=== PATIENT | female | born 1995 | race Caucasian/White ===

== ENCOUNTER 2020-03-02 15:13 | Inpatient (IN) | payer BC ==
[2020-03-02] MEDS ORDERED: MISOPROSTOL 0.2 MG TABLET ONE (15:21)
[2020-03-02] MEDS ORDERED: OXYTOCIN 10 UNIT/ML VIAL ONE (15:21)
[2020-03-02] MEDS ORDERED: OXYTOCIN/0.9 % SODIUM CHLORIDE 30 UNIT/500 ML RTUINJ ONE (15:22)
[2020-03-02] MEDS ORDERED: LIDOCAINE 1% INJ-PF (10 MG/ML) 30 ML SDV ONE ×2 (15:22→19:42)
[2020-03-02] MEDS ORDERED: RINGERS SOLUTION,LACTATED 1,000 ML IV PRN (15:24)
[2020-03-02] MEDS ORDERED: PROMETHAZINE HCL INJ 25 MG/1 ML VIAL ONE (16:14)
[2020-03-02] MEDS ORDERED: NALBUPHINE HCL INJ 10 MG/1 ML AMPULE ONE (16:14)
[2020-03-02] MEDS ORDERED: NALBUPHINE HCL INJ 10 MG/1 ML AMPULE IV ONE (16:21)
[2020-03-02] MEDS ORDERED: PROMETHAZINE HCL INJ 25 MG/1 ML VIAL IV ONE (16:21)
[2020-03-02 16:36] LABS: ABSOLUTE LYMPHOCYTES (AUTO) 1.1 10^3/uL (0.5-4.7); ABSOLUTE MONOCYTES (AUTO) 0.8 10^3/uL (0.1-1.4); ABSOLUTE NEUT (AUTO) 10.5 10^3/uL (1.7-8.2); BASOPHILS % (AUTO) 0.2 % (0-2); HEMATOCRIT 32.6 % (36.0-47.0); HEMOGLOBIN 11.2 g/dL (12.0-15.5); LYMPHOCYTES % (AUTO) 8.5 % (13-45); MEAN CORPUSCULAR HGB CONC 34.3 g/dL (32.0-36.0); MEAN CORPUSCULAR VOLUME 88 fl (80-97); MONOCYTES % (AUTO) 6.2 % (3-13); PLATELET COUNT 205 10^3/uL (150-450); RED BLOOD COUNT 3.72 10^6/uL (3.72-5.28); RED CELL DISTRIBUTION WIDTH 15.4 % (11.5-14.0); SEGMENTED NEUTROPHILS % (AUTO) 85.1 % (42-78); TOTAL CELLS COUNTED % (AUTO) 100 %; WHITE BLOOD COUNT 12.4 10^3/uL (4.0-10.5)
[2020-03-02 16:47] LABS: APPEARANCE,URINE CLEAR; BILIRUBIN,URINE NEGATIVE (NEGATIVE); COLOR,URINE STRAW; GLUCOSE, URINE NEGATIVE (NEGATIVE); KETONES,URINE NEGATIVE (NEGATIVE); LEUKOCYTE ESTERASE,URINE SMALL (NEGATIVE); NITRITE,URINE NEGATIVE (NEGATIVE); PROTEIN,URINE NEGATIVE (NEGATIVE); URINE SPECIFIC GRAVITY 1.005; UROBILINOGEN,URINE NEGATIVE mg/dL (<2.0)
[2020-03-02] MEDS ORDERED: OXYTOCIN/0.9 % SODIUM CHLORIDE 30 UNIT/500 ML RTUINJ IV PRN ×2 (16:51→20:07)
--- NOTE | 2020-03-02 16:51 | Admission Physical ---
Datetime Report Generated by CPN: 03/02/2020 16:51 CURRENT ADMISSION Chief Complaint: Uterine Contractions Chief Complaint Other: not progressing at [facility] Indication for Induction: Not Applicable Indication for Induction- Other: may need labor augmentation Admit Impression : Term, Intrauterine ; Active Labor Admit Plan: Admit to Unit; Initiate Labor Augmentation Protocol ALLERGIES Medication Allergies: No Medication Allergies: gluten (03/02/2020) Latex: No Latex Allergies OBSTETRICAL HISTORY EDC: 02/27/2020 00:00 : 3 Para: 0 Term: 0 : 0 SAB: 2 IAB: 0 Ectopic: 0 Livin Cesareans: 0 VBACs: 0 Multiple Births: 0 PHYSICAL EXAM General: Normal HEENT: Normal Neurologic: Normal Thyroid: Deferred Heart: Normal Lungs: Normal Breast: Deferred Back: Normal Abdomen: Normal Genitourinary Exam: Normal Extremities: Normal DTRs: Deferred Pelvic Type: Adequate Vital Signs: Reviewed; Within Normal Limits VAGINAL EXAM Dilatation: 7 Effacement: 100 Station: 0 Contraction Comments: Q 3-4 mins MEMBRANES Pooling: Positive Membranes: Ruptured Amniotic Fluid Color: Clear FETUS A Monitoring: External US FHR- Baseline: 135 Variability: Moderate 6-25bpm Accelerations: 15X15 Decelerations: None FHR Category: Category I Estimated Weight (gm): 3650 Presentation: Vertex Admit Comment: at 40w4d seen a [facility] center in [place]. presented for care d/t contractions. AROM done by CHER Thomas at 1130 for clear fluid. CHER Thomas reports cx 6-7cm at 0300 and pt not pregressing with a disfunctional labor pattern. hx PCOS and failed early gtt with 190 at 20 weeks. Pt states she followed her sugars throughout her and they have been normal. INFORMED CONSENT Assignment: Evan Allen MD Signature: with User ID: Hayden : with User ID: Hayden
[2020-03-02 17:03] LABS: URINE AMPHETAMINES SCREEN NEGATIVE; URINE BARBITURATES SCREEN NEGATIVE; URINE BENZODIAZEPINES SCREEN NEGATIVE; URINE COCAINE SCREEN NEGATIVE; URINE MARIJUANA (THC) SCREEN NEGATIVE; URINE METHADONE SCREEN NEGATIVE; URINE PHENCYCLIDINE SCREEN NEGATIVE
[2020-03-02] MEDS ORDERED: DIBUCAINE 1% OINTMENT 28 GM TP PRN (20:07)
[2020-03-02] MEDS ORDERED: MAGNESIUM HYDROXIDE SUSP 30 ML UDCUP PO PRN (20:07)
[2020-03-02] MEDS ORDERED: PSEUDOEPHEDRINE HCL 30 MG TABLET PO PRN (20:07)
[2020-03-02] MEDS ORDERED: MEASLES,MUMPS&RUBELLA VACC/PF 0.5 ML VIAL SUBCUT PRN (20:07)
[2020-03-02] MEDS ORDERED: NA PHOS,M-B/NA PHOS,DI-BA (ADULT) 133 ML ENEMA PR PRN (20:07)
[2020-03-02] MEDS ORDERED: PROMETHAZINE HCL 25 MG TABLET PO PRN (20:07)
[2020-03-02] MEDS ORDERED: BENZOCAINE/MENTHOL AEROSOL SPRAY 56 ML TOP PRN (20:07)
[2020-03-02] MEDS ORDERED: PROMETHAZINE HCL 25 MG SUPP.RECT PR PRN (20:07)
[2020-03-02] MEDS ORDERED: GLYCERIN/WITCH HAZEL LEAF 1 EACH MED..WIPE TP PRN (20:07)
[2020-03-02] MEDS ORDERED: ZOLPIDEM TARTRATE 5 MG TABLET PO PRN (20:07)
[2020-03-02] MEDS ORDERED: ACETAMINOPHEN WITH CODEINE #3 TABLET PO PRN ×2 (20:07)
[2020-03-02] MEDS ORDERED: DIPHENHYDRAMINE HCL 25 MG CAPSULE PO PRN (20:07)
[2020-03-02] MEDS ORDERED: DIPH/PERTUSS(ACELL)/TETANUS VAC/PF 0.5 ML SYR (>=10YO) IM PRN (20:07)
[2020-03-02] MEDS ORDERED: ACETAMINOPHEN 650 MG SUPP.RECT PR PRN (20:07)
[2020-03-02] MEDS ORDERED: PROMETHAZINE HCL INJ 25 MG/1 ML VIAL IV PRN (20:07)
[2020-03-02] MEDS ORDERED: IBUPROFEN 800 MG TABLET ONE (20:44)
--- NOTE | 2020-03-02 21:42 | Delivery Summary ---
Del Sum A-C Datetime Report Generated by CPN: 03/02/2020 21:41 DELIVERY PERSONNEL DELIVERY PERSONNEL: [id number] Delivery Doctor:: Evan Allen MD (Annotations: Data stored by CPN on behalf of user) Labor and Delivery Nurse:: Cameron Zacarias RN (Annotations: Data stored by CPN on behalf of user) Labor and Delivery Nurse:: Priyanka Warren RN (Annotations: Data stored by CPN on behalf of user) MATERNAL INFORMATION Delivery Anesthesia: None Medications After Delivery: Pitocin Bolus-Please Comment; Pitocin 30 Units in 500ml NS/D5W Delivery QBL: 316 Maternal Complications: None LABOR SUMMARY EDC: 02/27/2020 00:00 No. Babies in Womb: 1 Attempted: No Labor Anesthesia: None LABOR INFORMATION Reason for Induction: Not Applicable Onset of Labor: 03/02/2020 15:46 Complete Dilatation: 03/02/2020 17:53 Oxytocin: N/A Group B Beta Strep: Negative Antibiotics # of Doses: 0 Name of Antibiotic Given: n/a MEMBRANES Membranes Rupture Method: Artificial Rupture of Membranes: 03/02/2020 16:00 Length of Rupture (hr): 3.57 Amniotic Fluid Color: Clear Amniotic Fluid Amount: Small Amniotic Fluid Odor: Normal STAGES OF LABOR Stage 1 hr: 2 Stage 1 min: 7 Stage 2 hr: 1 Stage 2 min: 41 Stage 3 hr: 0 Stage 3 min: 4 Total Time in Labor hr: 3 Total Time in Labor min: 52 VAGINAL DELIVERY Episiotomy: None Laceration #1: Vaginal; Sulcus Laceration Extension #1: Third Degree, IIIa (Less than 50 percent ext anal sphincter thickness torn) Laceration #2: Vaginal Laceration Extension #2: N/A Laceration #3: Vaginal Laceration Extension #3: N/A Laceration Repair: Yes Laceration Repair Note: bilateral vaginal tears repaired with 2-0 vicryl left deep sulcus tear, external spincter repaired 3 layers and remaining repaired in usual continuous fashions Sponge Count Correct: Yes; Vaginal Sweep Performed Sharps Count Correct: Yes CSECTION DELIVERY Primary Indication: N/A Secondary Indication: N/A CSection Incidence: N/A Labor: N/A Elective: N/A CSection Incision: N/A BABY A INFORMATION Delivery Date/Time: 03/02/2020 19:34 Method of Delivery: Vaginal Nurse Controlled Delivery: No Born in Route : No : N/A PRESENTATION/POSITION BABY A Presentation: Cephalic Cephalic Presentation: Vertex Vertex Position: Left Occipital Anterior Breech Presentation: N/A PLACENTA INFORMATION BABY A Placenta Delivery Time : 03/02/2020 19:38 Placenta Method of Delivery: Spontaneous Placenta Status: Delivered SCORES BABY A Heart Rate 1 min: >100 bpm Resp Effort 1 min: Good Cry Reflex Irritability 1 min: Cough or Sneeze or Pulls Away Muscle Tone 1 min: Active Motion Color 1 min: Blue/Pale Resuscitation Effort 1 min: Tactile Stimulation SCORE 1 MIN: 8 Heart Rate 5 min: >100 bpm Resp Effort 5 min: Good Cry Reflex Irritability 5 min: Cough or Sneeze or Pulls Away Muscle Tone 5 min: Active Motion Color 5 min: Body [place], Extremities Blue Resuscitation Effort 5 min: Tactile Stimulation SCORE 5 MIN: 9 INFANT INFORMATION BABY A Gestational Age at Delivery: 40.4 Gestational Status: Full Term- 39- 40.6 Weeks Outcome : Liveborn Infant Condition : Stable Infant Sex: Male WEIGHT/LENGTH BABY A Birthweight (gm): 3550 Weight (lb): 7 Weight (oz): 13 Infant Length (in): 19.50 Length (cm): 49.53 CORD INFORMATION BABY A No. Cord Vessels: 3 Nuchal Cord : N/A Cord Blood Taken: Yes-For Storage (Mom's Blood type +) Infant Suction: None ASSESSMENT BABY A Infant Complications: None Physical Findings at Delivery: Within Normal Limits Skin to Skin: Yes Skin to Skin Time (min): 60 Transferred To: Remains with Mother BABY B INFORMATION : N/A SIGNATURES Signature: with User ID: [email or web address] : I was personally available for consultation and serving as supervising physician for the MLP.
--- NOTE | 2020-03-02 21:42 | Birth Certificate Data ---
Cert Data Datetime Report Generated by Jennifer: 03/02/2020 21:41 CERTIFICATE DATA Delivery Provider: Evan Allen MD (Annotations: Data stored by MARY on behalf of user) (03/02/2020 16:29:Elma Bhandari RN) 47a. Care: Yes (03/02/2020 16:29:JANE Jones) 47b. Date of First Visit: 09/03/2019 00:00 (03/02/2020 16:29:JANE Jones) 47c. Date of Last Visit: 02/26/2020 00:00 (03/02/2020 16:29:JANE Jones) 48a. Number of Prev Live Births: 0 (03/02/2020 16:29:JANE Jones) 48b. Now Livin (03/02/2020 16:29:JANE Jones) 48c. Live Births Now : 0 (03/02/2020 16:29:QS system process) 48e. Losses: 2 (03/02/2020 16:29:[facility]) 48f. Date of Last Preg Loss: 11/18/2018 00:00 (03/02/2020 16:29:[facility]) RISK FACTORS IN THIS 49a. Diabetes: No (03/02/2020 16:29:Vivian Graham RN) 49b. Hypertension: No (03/02/2020 16:29:Vivian Graham RN) 49c. Previous Births: 0 (03/02/2020 16:29:[facility]) 49d. Stillborns: No (03/02/2020 16:29:Vivian Graham RN) 49d. IUGR: No (03/02/2020 16:29:Vivian Graham RN) 49e. Infertility Treatment: No (03/02/2020 16:29:Vivian Graham RN) 49f. Previous Cesareans: 0 (03/02/2020 16:29:[facility]) Mother's Height 50b. Height Inches: 65 (03/02/2020 15:32:QS system process) Mother's Weight 51a. Pre- Weight (lbs): 187 (03/02/2020 16:29:JANE Jones) 51b. Weight at Delivery (lbs): 220 (03/02/2020 15:32:QS system process) 52. Dt Last Normal Menses Began: 05/23/2019 00:00 (03/02/2020 16:29:JANE Jones) Infections Present/Treated 53a. Gonorrhea: No (03/02/2020 16:29:Vivian Graham RN) Results this Hospital Visit : Negative (03/02/2020 16:29:Vivian Graham RN) 53b. Syphilis: No (03/02/2020 16:29:Vivian Graham RN) 53c. Chlamydia: No (03/02/2020 16:29:Vivian Graham RN) Results this Hospital Visit: Negative (03/02/2020 16:29:Vivian Graham RN) 53d. Hepatitis B: No (03/02/2020 16:29:Vivian Graham RN) Results this Hospital Visit: Negative (03/02/2020 16:29:Vivian Graham RN) 53e. Hepatitis C: Negative (03/02/2020 16:29:Vivian Graham RN) 53h. Mother Tested for HBsAG: Yes (03/02/2020 16:29:JANE Jones) 53i. Date Tested: 09/11/2019 00:00 (03/02/2020 16:29:JANE Jones) 53j. Test Result: Negative (03/02/2020 16:29:Vivian Graham RN) Obstetric Procedures 54a, b, c. Obstetric Procedures: Ultrasound (03/02/2020 16:29:Vivian Graham RN) Cigarette Smoking Cigarette Smoking: Never Smoker. [id number] (03/02/2020 16:29:Vivian Graham RN) 55a. 3 Months Before Preg - Ci (03/02/2020 16:29:Vivian Graham RN) 55a. Packs: 0 (03/02/2020 16:29:Vivian Graham RN) 55b. 1st Trimester of Preg- Ci (03/02/2020 16:29:Vivian Graham RN) 55b. Packs: 0 (03/02/2020 16:29:Vivian Graham RN) 55c. 2nd Trimester of Preg- Ci (03/02/2020 16:29:Vivian Graham RN) 55c. Packs: 0 (03/02/2020 16:29:Vivian Graham RN) 55d. 3rd Trimester of Preg- Ci (03/02/2020 16:29:Vivian Graham RN) 55d. Packs: 0 (03/02/2020 16:29:Vivian Graham RN) Onset of Labor 56a. PROM >12 Hrs: 3.57 (03/02/2020 16:29:QS system process) 56b. Precipitous Labor <3 Hrs: 3 (03/02/2020 16:29:QS system process) 56c. Prolonged Labor > 20 Hrs: 3 (03/02/2020 16:29:QS system process) 57a. Induction of Labor: N/A (03/02/2020 16:29:Cameron Zacarias RN) 57c. Non-Vertex Presentation A: Vertex (03/02/2020 16:29:Cameron Zacarias RN) 57f. Mat [place] or Temp >100.4: 98.6 (03/02/2020 16:29:Cameron Zacarias RN) 57g. Moderate/Heavy Meconium: Clear (03/02/2020 16:29:Cameron Zacarias RN) 57h. Intolerance of Labor: N/A (03/02/2020 16:29:Cameron Zacarias RN) : N/A (03/02/2020 16:29:Cameron Zacarias RN) 57i. Epidural/Spinal Anesthesia: None (03/02/2020 16:29:Cameron Zacarias RN) 58c. Presentation at 58c. Presentation at - A : Vertex (03/02/2020 16:29:Cameron Zacarias RN) 58c. Presentation at - A : N/A (03/02/2020 16:29:Cameron Zacarias RN) 58c. Presentation at - A : Cephalic (03/02/2020 15:46:Priyanka Warren RN) Final Route and Method of Del 58d. Baby A Route/Delivery: Vaginal (03/02/2020 16:29:Evan Allen MD ([facility])) 58e. Trial of Labor Attempted: No (03/02/2020 16:29:Cameron Zacarias RN) 58e. Trial of Labor Attempted A: N/A (03/02/2020 16:29:Cameron Zacarias RN) 58e. Trial of Labor Attempted B: N/A (03/02/2020 16:29:Cameron Zacarias RN) Maternal Morbidity 59b. 3rd or 4th Degree Lacs: Vaginal; Sulcus (03/02/2020 16:29:Evan Allen MD ([facility])) Birthweight Baby A: 3550 (03/02/2020 16:29:Cameron Zacarias RN) 60a. Pounds : 7 (03/02/2020 16:29:QS system process) 60b. Ounces: 13 (03/02/2020 16:29:QS system process) 61. GA at Delivery Baby A: 40.4 (03/02/2020 16:29:Cameron Zacarias RN) : Full Term- 39- 40.6 Weeks (03/02/2020 16:29:QS system process) 62a. 5 Minute Baby A: 9 (03/02/2020 16:29:QS system process)
[2020-03-02] MEDS: FAMOTIDINE 20 MG TABLET PO SCH (23:44)
[2020-03-02] MEDS: IBUPROFEN 800 MG TABLET PO SCH (23:44)
--- NOTE | 2020-03-03 04:22 | Delivery Summary ---
Del Sum A-C Datetime Report Generated by CPN: 03/03/2020 04:22 DELIVERY PERSONNEL DELIVERY PERSONNEL: [id number] Delivery Doctor:: Evan Allen MD (Annotations: Data stored by CPN on behalf of user) Labor and Delivery Nurse:: Cameron Zacarias RN (Annotations: Data stored by CPN on behalf of user) Labor and Delivery Nurse:: Priyanka Warren RN (Annotations: Data stored by CPN on behalf of user) Mock Up Assembler/JOB PLACEMENT OFFICER: Lindsey Green, ST MATERNAL INFORMATION Delivery Anesthesia: None Medications After Delivery: Pitocin Bolus-Please Comment; Pitocin 30 Units in 500ml NS/D5W Delivery QBL: 316 Maternal Complications: None LABOR SUMMARY EDC: 02/27/2020 00:00 No. Babies in Womb: 1 Attempted: No Labor Anesthesia: None LABOR INFORMATION Reason for Induction: Not Applicable Onset of Labor: 03/02/2020 15:46 Complete Dilatation: 03/02/2020 17:53 Oxytocin: N/A Group B Beta Strep: Negative Antibiotics # of Doses: 0 Name of Antibiotic Given: n/a MEMBRANES Membranes Rupture Method: Artificial Rupture of Membranes: 03/02/2020 16:00 Length of Rupture (hr): 3.57 Amniotic Fluid Color: Clear Amniotic Fluid Amount: Small Amniotic Fluid Odor: Normal STAGES OF LABOR Stage 1 hr: 2 Stage 1 min: 7 Stage 2 hr: 1 Stage 2 min: 41 Stage 3 hr: 0 Stage 3 min: 4 Total Time in Labor hr: 3 Total Time in Labor min: 52 VAGINAL DELIVERY Episiotomy: None Laceration #1: Vaginal; Sulcus Laceration Extension #1: Third Degree, IIIa (Less than 50 percent ext anal sphincter thickness torn) Laceration #2: Vaginal Laceration Extension #2: N/A Laceration #3: Vaginal Laceration Extension #3: N/A Laceration Repair: Yes Laceration Repair Note: bilateral vaginal tears repaired with 2-0 vicryl left deep sulcus tear, external spincter repaired 3 layers and remaining repaired in usual continuous fashions Sponge Count Correct: Yes; Vaginal Sweep Performed Sharps Count Correct: Yes CSECTION DELIVERY Primary Indication: N/A Secondary Indication: N/A CSection Incidence: N/A Labor: N/A Elective: N/A CSection Incision: N/A BABY A INFORMATION Delivery Date/Time: 03/02/2020 19:34 Method of Delivery: Vaginal Nurse Controlled Delivery: Yes Born in Route : No : N/A Forceps: N/A Vacuum Extraction: N/A Shoulder Dystocia : No PRESENTATION/POSITION BABY A Presentation: Cephalic Cephalic Presentation: Vertex Vertex Position: Left Occipital Anterior Breech Presentation: N/A PLACENTA INFORMATION BABY A Placenta Delivery Time : 03/02/2020 19:38 Placenta Method of Delivery: Spontaneous Placenta Status: Delivered SCORES BABY A Heart Rate 1 min: >100 bpm Resp Effort 1 min: Good Cry Reflex Irritability 1 min: Cough or Sneeze or Pulls Away Muscle Tone 1 min: Active Motion Color 1 min: Blue/Pale Resuscitation Effort 1 min: Tactile Stimulation SCORE 1 MIN: 8 Heart Rate 5 min: >100 bpm Resp Effort 5 min: Good Cry Reflex Irritability 5 min: Cough or Sneeze or Pulls Away Muscle Tone 5 min: Active Motion Color 5 min: Body [place], Extremities Blue Resuscitation Effort 5 min: Tactile Stimulation SCORE 5 MIN: 9 INFORMATION BABY A Gestational Age at Delivery: 40.4 Gestational Status: Full Term- 39- 40.6 Weeks Infant Outcome : Liveborn Condition : Stable Sex: Male IDENTIFICATION BABY A Verification Date/Time: 03/02/2020 22:12 ID Band Number: [id number] Mother's Name Verified: Yes RN Verifying Infant: Anival Copeland, RN [facility] WEIGHT/LENGTH BABY A Birthweight (gm): 3550 Weight (lb): 7 Infant Weight (oz): 13 Infant Length (in): 19.50 Infant Length (cm): 49.53 CORD INFORMATION BABY A No. Cord Vessels: 3 Nuchal Cord : N/A Cord Blood Taken: Yes-For Storage (Mom's Blood type +) Suction: None ASSESSMENT BABY A Infant Complications: None Physical Findings at Delivery: Within Normal Limits Skin to Skin: Yes Skin to Skin Time (min): 60 Transferred To: Remains with Mother BABY B INFORMATION : N/A SIGNATURES Signature: with User ID: [email or web address] : I was personally available for consultation and serving as supervising physician for the MLP.
--- NOTE | 2020-03-03 04:22 | Birth Certificate Data ---
Cert Data Datetime Report Generated by Jennifer: 03/03/2020 04:22 CERTIFICATE DATA Delivery Provider: Evan Allen MD (Annotations: Data stored by MARY on behalf of user) (03/02/2020 16:29:Elma Bhandari RN) 47a. Care: Yes (03/02/2020 16:29:JANE Jones) 47b. Date of First Visit: 09/03/2019 00:00 (03/02/2020 16:29:JANE Jones) 47c. Date of Last Visit: 02/26/2020 00:00 (03/02/2020 16:29:JANE Jones) 48a. Number of Prev Live Births: 0 (03/02/2020 16:29:JANE Jones) 48b. Now Livin (03/02/2020 16:29:JANE Jones) 48c. Live Births Now : 0 (03/02/2020 16:29:QS system process) 48e. Losses: 2 (03/02/2020 16:29:[facility]) 48f. Date of Last Preg Loss: 11/18/2018 00:00 (03/02/2020 16:29:[facility]) RISK FACTORS IN THIS 49a. Diabetes: No (03/02/2020 16:29:Vivian Graham RN) 49b. Hypertension: No (03/02/2020 16:29:Vivian Graham RN) 49c. Previous Births: 0 (03/02/2020 16:29:[facility]) 49d. Stillborns: No (03/02/2020 16:29:Vivian Graham RN) 49d. IUGR: No (03/02/2020 16:29:Vivian Graham RN) 49e. Infertility Treatment: No (03/02/2020 16:29:Vivian Graham RN) 49f. Previous Cesareans: 0 (03/02/2020 16:29:[facility]) Mother's Height 50b. Height Inches: 65 (03/02/2020 15:32:QS system process) Mother's Weight 51a. Pre- Weight (lbs): 187 (03/02/2020 16:29:JANE Jones) 51b. Weight at Delivery (lbs): 220 (03/02/2020 15:32:QS system process) 52. Dt Last Normal Menses Began: 05/23/2019 00:00 (03/02/2020 16:29:JANE Jones) Infections Present/Treated 53a. Gonorrhea: No (03/02/2020 16:29:Vivian Graham RN) Results this Hospital Visit : Negative (03/02/2020 16:29:Vivian Graham RN) 53b. Syphilis: No (03/02/2020 16:29:Vivian Graham RN) 53c. Chlamydia: No (03/02/2020 16:29:Vivian Graham RN) Results this Hospital Visit: Negative (03/02/2020 16:29:Vivian Graham RN) 53d. Hepatitis B: No (03/02/2020 16:29:Vivian Graham RN) Results this Hospital Visit: Negative (03/02/2020 16:29:Vivian Graham RN) 53e. Hepatitis C: Negative (03/02/2020 16:29:Vivian Graham RN) 53h. Mother Tested for HBsAG: Yes (03/02/2020 16:29:JANE Jones) 53i. Date Tested: 09/11/2019 00:00 (03/02/2020 16:29:JANE Jones) 53j. Test Result: Negative (03/02/2020 16:29:Vivian Graham RN) Obstetric Procedures 54a, b, c. Obstetric Procedures: Ultrasound (03/02/2020 16:29:Vivian Graham RN) Cigarette Smoking Cigarette Smoking: Never Smoker. [id number] (03/02/2020 16:29:Vivian Graham RN) 55a. 3 Months Before Preg - Ci (03/02/2020 16:29:Vivian Graham RN) 55a. Packs: 0 (03/02/2020 16:29:Vivian Graham RN) 55b. 1st Trimester of Preg- Ci (03/02/2020 16:29:Vivian Graham RN) 55b. Packs: 0 (03/02/2020 16:29:Vivian Graham RN) 55c. 2nd Trimester of Preg- Ci (03/02/2020 16:29:Vivian Graham RN) 55c. Packs: 0 (03/02/2020 16:29:Vivian Graham RN) 55d. 3rd Trimester of Preg- Ci (03/02/2020 16:29:Vivian Graham RN) 55d. Packs: 0 (03/02/2020 16:29:Vivian Graham RN) Onset of Labor 56a. PROM >12 Hrs: 3.57 (03/02/2020 16:29:QS system process) 56b. Precipitous Labor <3 Hrs: 3 (03/02/2020 16:29:QS system process) 56c. Prolonged Labor > 20 Hrs: 3 (03/02/2020 16:29:QS system process) 57a. Induction of Labor: N/A (03/02/2020 16:29:Cameron Zacarias RN) 57c. Non-Vertex Presentation A: Vertex (03/02/2020 16::Cameron Zacarias RN) 57f. Mat [place] or Temp >100.4: 98.6 (03/02/2020 16::Cameron Zacarias RN) 57g. Moderate/Heavy Meconium: Clear (03/02/2020 16::Cameron Zacarias RN) 57h. Intolerance of Labor: N/A (03/02/2020 16::Cameron Zacarias RN) : N/A (03/02/2020::Cameron Zacarias RN) 57i. Epidural/Spinal Anesthesia: None (03/02/2020 16::Cameron Zacarias RN) Method of Delivery 58a. Forceps - Unsuccessful A: N/A (03/02/2020 16:29:Cameron Zacarias RN) 58b. Vacuum - Unsuccessful A: N/A (03/02/2020 16:29:Cameron Zacarias RN) 58c. Presentation at 58c. Presentation at - A : Vertex (03/02/2020 16:29:Cameron Zacarias RN) 58c. Presentation at - A : N/A (03/02/2020 16:29:Cameron Zacarias RN) 58c. Presentation at - A : Cephalic (03/02/2020 15:46:Priyanka Warren RN) Final Route and Method of Del 58d. Baby A Route/Delivery: Vaginal (03/02/2020 16:29:Evan Allen MD ([facility])) 58e. Trial of Labor Attempted: No (03/02/2020 16:29:Cameron Zacarias RN) 58e. Trial of Labor Attempted A: N/A (03/02/2020 16:29:Cameron Zacarias RN) 58e. Trial of Labor Attempted B: N/A (03/02/2020 16:29:Cameron Zacarias RN) Maternal Morbidity 59b. 3rd or 4th Degree Lacs: Vaginal; Sulcus (03/02/2020 16:29:Evan Allen MD ([facility])) Birthweight Baby A: 3550 (03/02/2020 16:29:Cameron Zacarias RN) 60a. Pounds : 7 (03/02/2020 16:29:QS system process) 60b. Ounces: 13 (03/02/2020 16:29:QS system process) 61. GA at Delivery Baby A: 40.4 (03/02/2020 16:29:Cameron Zacarias RN) : Full Term- 39- 40.6 Weeks (03/02/2020 16:29:QS system process) 62a. 5 Minute Baby A: 9 (03/02/2020 16:29:QS system process)
[2020-03-03] MEDS: IBUPROFEN 800 MG TABLET PO SCH ×3 (06:06→21:08)
[2020-03-03 07:34] LABS: HEMATOCRIT 24.9 % (36.0-47.0); MEAN CORPUSCULAR HEMOGLOBIN 30.9 pg (27.0-33.4); MEAN CORPUSCULAR VOLUME 88 fl (80-97); PLATELET COUNT 182 10^3/uL (150-450); RED BLOOD COUNT 2.83 10^6/uL (3.72-5.28); RED CELL DISTRIBUTION WIDTH 15.4 % (11.5-14.0); WHITE BLOOD COUNT 11.2 10^3/uL (4.0-10.5)
[2020-03-03 07:36] LABS: HEMOGLOBIN 8.7 g/dL (12.0-15.5)
[2020-03-03] MEDS: FERROUS SULFATE 325 MG TABLET PO SCH ×2 (09:49→17:45)
[2020-03-03] MEDS: PRENATAL VITAMIN W DHA CAPSULE PO SCH ×2 (09:49→09:50)
[2020-03-03] MEDS: DOCUSATE SODIUM 100 MG CAPSULE PO SCH ×2 (09:49→17:45)
[2020-03-03] MEDS: SENNOSIDES/DOCUSATE 8.6-50 MG 1 EACH TABLET PO SCH (09:49)
[2020-03-03] MEDS: FAMOTIDINE 20 MG TABLET PO SCH ×2 (09:50→21:08)
--- NOTE | 2020-03-03 11:10 | PDOC PROGRESS REPORT ---
Subjective-OB Progress Note for:: 03/03/20 - PP Day #1, doing well, UOB voiding, denies h/a or SOB, A+, Rubella Immune, 3 degree vaginal laceration Physical Exam (OB) Vital Signs: Temp Pulse Resp BP Pulse Ox 97.6 F 93 18 116/64 100 03/03/20 08:00 03/03/20 08:00 03/03/20 08:00 03/03/20 08:00 03/03/20 08:00 Intake & Output 03/02/20 03/03/20 03/04/20 06:59 06:59 06:59 Output Total 900 Balance -900 Weight 100 kg - General General Appearance: Appears well, Alert In distress: None - PIH/Pre-Eclampsia Clonus: Negative Headache: Absent Epigastric Pain: No Visual Changes: No - Maternal Morbidity 59. Maternal Morbidity (serious complications experinced by the mother associated with labor and delivery: Third or fourth degree perineal laceration - Lochia Lochia Amount: Small 10-25 ml Lochia Color: Rubra/Red - Abdomen Description: Soft, Round Hernia Present: No Fundal Description: Firm, Midline Fundal Height: u/u - u/2 - Respiratory Respiratory Status: No respiratory distress - Abdominal Distension: No distension Tenderness: Nontender - Genitourinary Genitourinary Note: voiding - Extremities Upper extremity: Normal inspection Lower extremities: Edema - Neurological Cognition: Normal Orientation: AAOx4 - Psychological Associated symptoms: Normal affect, Normal mood - Skin Skin Temperature: Warm Skin Moisture: Dry Objective-Diagnostic Laboratory: 03/03/20 07:14 03/02/20 03/02/20 03/02/20 15:27 15:47 15:47 WBC 12.4 H RBC 3.72 Hgb 11.2 L Hct 32.6 L MCV 88 MCH 30.0 MCHC 34.3 RDW 15.4 H Plt Count 205 Seg Neutrophils % 85.1 H Urine Color STRAW Urine Appearance CLEAR Urine pH 7.0 Ur Specific [place] 1.005 Urine Protein NEGATIVE Urine Glucose (UA) NEGATIVE Urine Ketones NEGATIVE Urine Blood SMALL H Urine Nitrite NEGATIVE Ur Leukocyte Esterase SMALL H Blood Type A POSITIVE Antibody Screen NEGATIVE 03/03/20 07:14 WBC 11.2 H RBC 2.83 L Hgb 8.7 L D Hct 24.9 L MCV 88 MCH 30.9 MCHC 35.0 RDW 15.4 H Plt Count 182 Seg Neutrophils % Urine Color Urine Appearance Urine pH Ur Specific [place] Urine Protein Urine Glucose (UA) Urine Ketones Urine Blood Urine Nitrite Ur Leukocyte Esterase Blood Type Antibody Screen Assessment and Plan(PN) - Assessment and Plan (1) (normal spontaneous vaginal delivery) Is this a current diagnosis for this admission?: Yes (2) Obstetric vaginal laceration with third degree perineal laceration Qualifiers: Third degree perineal laceration subtype: unspecified Qualified Code(s): O70.20 - Third degree perineal laceration during delivery, unspecified Is this a current diagnosis for this admission?: Yes (3) Acute blood loss anemia Is this a current diagnosis for this admission?: Yes Plan:: Will give IV iron today, pt agrees with plan. Routine PP orders, careful ambulation encouraged - Time Spent with Patient Time with patient: Less than 15 minutes Medications reviewed and adjusted accordingly: Yes - Disposition Anticipated Discharge Disposition: Home, Self Care Anticipated Discharge Timeframe: within 24 hours
[2020-03-04] MEDS: IBUPROFEN 800 MG TABLET PO SCH (05:28)
[2020-03-04 07:53] VITALS: BP 125/76
[2020-03-04] MEDS: FERROUS SULFATE 325 MG TABLET PO SCH (09:15)
[2020-03-04] MEDS: PRENATAL VITAMIN W DHA CAPSULE PO SCH ×2 (09:15→21:37)
[2020-03-04] MEDS: DOCUSATE SODIUM 100 MG CAPSULE PO SCH (09:15)
[2020-03-04] MEDS: FAMOTIDINE 20 MG TABLET PO SCH (09:16)
[2020-03-04] MEDS: SENNOSIDES/DOCUSATE 8.6-50 MG 1 EACH TABLET PO SCH (09:16)
--- NOTE | 2020-03-04 11:02 | PDOC PROGRESS REPORT ---
Subjective-OB Progress Note for:: 03/04/20 Subjective: doing well, no c/o, hsb at [facility], ready to go home, no BM, voiding, Physical Exam (OB) Vital Signs: Temp Pulse Resp BP Pulse Ox 97.7 F 105 H 17 125/76 100 03/04/20 07:51 03/04/20 07:51 03/04/20 07:51 03/04/20 07:51 03/04/20 07:51 Intake & Output 03/03/20 03/04/20 03/05/20 06:59 06:59 06:59 Intake Total 400 Output Total 900 Balance -900 400 Weight 100 kg - PIH/Pre-Eclampsia DTR's: 2 + Clonus: Negative Headache: Absent Epigastric Pain: No Visual Changes: No - Maternal Morbidity 59. Maternal Morbidity (serious complications experinced by the mother associated with labor and delivery: Third or fourth degree perineal laceration - Lochia Lochia Amount: Scant < 10 ml Lochia Color: Rubra/Red - Abdomen Description: Soft, Round Hernia Present: No Fundal Description: Firm, Midline Fundal Height: u/u - u/2 Objective-Diagnostic Laboratory: 03/03/20 07:14 Assessment and Plan(PN) - Assessment and Plan (1) (normal spontaneous vaginal delivery) Is this a current diagnosis for this admission?: Yes (2) Obstetric vaginal laceration with third degree perineal laceration Qualifiers: Third degree perineal laceration subtype: unspecified Qualified Code(s): O70.20 - Third degree perineal laceration during delivery, unspecified Is this a current diagnosis for this admission?: Yes (3) Acute blood loss anemia Is this a current diagnosis for this admission?: Yes - Time Spent with Patient Time with patient: Less than 15 minutes Medications reviewed and adjusted accordingly: Yes - Disposition Anticipated Discharge Disposition: Home, Self Care - discussed home care for 3rd degree, no enemas, nothing in rectum, continue colace, diet high in fiber to avoid constipation, rev signs to call office if needed Anticipated Discharge Timeframe: within 24 hours
--- NOTE | 2020-03-04 11:17 | PDOC DISCHARGE SUMMARY ---
Impression - Admit/DC Date/PCP Admission Date/Primary Care Provider: 03/02/20 15:13 MARIO NORRIS MD Discharge Date: 03/04/20 - Discharge Diagnosis (1) (normal spontaneous vaginal delivery) Is this a current diagnosis for this admission?: Yes (2) Obstetric vaginal laceration with third degree perineal laceration Is this a current diagnosis for this admission?: Yes (3) Acute blood loss anemia Is this a current diagnosis for this admission?: Yes - Additional Information Resuscitation Status: Full Code Discharge Diet: As Tolerated, Regular Discharge Activity: Activity As Tolerated, Pelvic Rest, Other Referrals: MARIO NORRIS MD [Primary Care Provider] - (RTC 4 weeks) Home Medications: Vit/Dha [ Multi + Dha Capsule] 1 cap PO DAILY 03/02/20 Sennosides/Docusate 8.6-50 mg [Senna Plus Tablet] 1 each PO DAILY tablet 03/04/20 HPI Gestational Age: 40.3 Reason(s) for Admission: Onset of Labor Procedures: Ultrasound Intrapartum Procedure(s): Spontaneous Vaginal Delivery Complication(s): Laceration-Perineal Laceration-Degree: 3rd - pt transferred care to [facility] on 01-13-20. last visit 02-26-2020 @ 39.6, transferred in labor from [facility] for augmentation and maternal exhaustion Hospital Course Hospital Course: routine 59. Maternal Morbidity (serious complications experinced by the mother ass ociated with labor and delivery: Third or fourth degree perineal laceration Results Laboratory Results: WBC 11.2 10^3/uL (4.0-10.5) H 03/03/20 07:14 RBC 2.83 10^6/uL (3.72-5.28) L 03/03/20 07:14 Hgb 8.7 g/dL (12.0-15.5) L D 03/03/20 07:14 Hct 24.9 % (36.0-47.0) L 03/03/20 07:14 MCV 88 fl (80-97) 03/03/20 07:14 MCH 30.9 pg (27.0-33.4) 03/03/20 07:14 MCHC 35.0 g/dL (32.0-36.0) 03/03/20 07:14 RDW 15.4 % (11.5-14.0) H 03/03/20 07:14 Plt Count 182 10^3/uL (150-450) 03/03/20 07:14 Lymph % (Auto) 8.5 % (13-45) L 03/02/20 15:47 [place] % (Auto) 6.2 % (3-13) 03/02/20 15:47 Eos % (Auto) 0.0 % (0-6) 03/02/20 15:47 Baso % (Auto) 0.2 % (0-2) 03/02/20 15:47 Absolute Neuts (auto) 10.5 10^3/uL (1.7-8.2) H 03/02/20 15:47 Absolute Lymphs (auto) 1.1 10^3/uL (0.5-4.7) 03/02/20 15:47 Absolute Monos (auto) 0.8 10^3/uL (0.1-1.4) 03/02/20 15:47 Absolute Eos (auto) 0.0 10^3/uL (0.0-0.6) 03/02/20 15:47 Absolute Basos (auto) 0.0 10^3/uL (0.0-0.2) 03/02/20 15:47 Seg Neutrophils % 85.1 % (42-78) H 03/02/20 15:47 POC Glucose 108 mg/dL (70-110) 03/03/20 05:54 Urine Color STRAW 03/02/20 15:27 Urine Appearance CLEAR 03/02/20 15:27 Urine pH 7.0 (5.0-9.0) 03/02/20 15:27 Ur Specific [place] 1.005 03/02/20 15:27 Urine Protein NEGATIVE mg/dL (NEGATIVE) 03/02/20 15:27 Urine Glucose (UA) NEGATIVE mg/dL (NEGATIVE) 03/02/20 15:27 Urine Ketones NEGATIVE mg/dL (NEGATIVE) 03/02/20 15:27 Urine Blood SMALL (NEGATIVE) H 03/02/20 15:27 Urine Nitrite NEGATIVE (NEGATIVE) 03/02/20 15: Urine Bilirubin NEGATIVE (NEGATIVE) 03/02/20 15:27 Urine Urobilinogen NEGATIVE mg/dL (<2.0) 03/02/20 15:27 Ur Leukocyte Esterase SMALL (NEGATIVE) H 03/02/20 15:27 Urine Ascorbic Acid NEGATIVE (NEGATIVE) 03/02/20 15:27 Urine Opiates Screen NEGATIVE 03/02/20 15:27 Urine Methadone Screen NEGATIVE 03/02/20 15:27 Ur Barbiturates Screen NEGATIVE 03/02/20 15:27 Ur Phencyclidine Scrn NEGATIVE 03/02/20 15:27 Ur Amphetamines Screen NEGATIVE 03/02/20 15:27 U Benzodiazepines Scrn NEGATIVE 03/02/20 15:27 Urine Cocaine Screen NEGATIVE 03/02/20 15:27 U Marijuana (THC) Screen NEGATIVE 03/02/20 15:27 RPR NONREACTIVE (NONREACTIVE) 03/02/20 15:47 Blood Type A POSITIVE 03/02/20 15:47 Antibody Screen NEGATIVE 03/02/20 15:47 Plan Health Concerns: 3 rd degree laceration and risk of break down Plan of Treatment: dc home, strict instructions about inc water, nothing in rectum, avoid constipation, take colace/senokot, and discussed S&S to report Goals: no complications Time Spent: Less than 30 Minutes
== END 2020-03-04 13:30 | disposition home or self-care (01) | DRG 768 ==
LOC: LR 15:13 → 2S 22:58
PROVIDERS: ADMIT Obstetrics & Gynecology Gynecology; ATTEND Obstetrics & Gynecology Gynecology
PROC: 10E0XZZ Delivery of Products of Conception, External Approach (ICD-10-PCS; principal; 2020-03-02)
PROC: 0DQR0ZZ Repair Anal Sphincter, Open Approach (ICD-10-PCS; 2020-03-02)
PROC: 10907ZC Drainage of Amniotic Fluid, Therapeutic from Products of Conception, Via Natural or Artificial Opening (ICD-10-PCS; 2020-03-02)
DX: O71.4 Obstetric high vaginal laceration alone (principal); Z37.0 Single live birth; D62 Acute posthemorrhagic anemia; O99.02 Anemia complicating childbirth; Z3A.40 40 weeks gestation of pregnancy; O75.81 Maternal exhaustion complicating labor and delivery; Z91.018 Allergy to other foods
CPT/HCPCS: 36415; 80307; 81005; 82962; 85025; 85027; 86592; 86850; 86900; 86901; J2300; J2550; J2590; J3490